=== PATIENT | male | born 1955 | race Caucasian/White ===

== ENCOUNTER → 2016-12-10 | Outpatient (CLI) | payer OTHER | LOC: CIMAGING 10:04 | PROVIDERS: ATTEND Internal Medicine | DX: M50.322 Other cervical disc degeneration at C5-C6 level (principal); M50.323 Other cervical disc degeneration at C6-C7 level; M46.92 Unspecified inflammatory spondylopathy, cervical region; I65.22 Occlusion and stenosis of left carotid artery | CPT/HCPCS: 72050-PO ==

== ENCOUNTER → 2016-12-18 | Outpatient (CLI) | payer OTHER | LOC: CIMAGING 10:58 | PROVIDERS: ATTEND Internal Medicine | DX: Z13.6 Encounter for screening for cardiovascular disorders (principal); I10 Essential (primary) hypertension; Z79.82 Long term (current) use of aspirin; Z87.891 Personal history of nicotine dependence | CPT/HCPCS: 75571-PO ==

== ENCOUNTER → 2016-12-18 | Outpatient (CLI) | payer OTHER | LOC: CIMAGING 10:49 | PROVIDERS: ATTEND Internal Medicine | DX: E04.1 Nontoxic single thyroid nodule (principal); I10 Essential (primary) hypertension ==

== ENCOUNTER 2017-01-27 10:09 | Emergency (ER) | payer OTHER ==
[2017-01-27 10:22] VITALS: RESP 18
--- NOTE | 2017-01-27 10:35 | CPEKG ---
Heart Rate: 50 RR Interval: 1200 P-R Interval: 132 QRSD Interval: 86 QT Interval: 432 QTC Interval: 394 P [place]: 19 QRS [place]: 43 T Wave [place]: 23 EKG Severity - NORMAL ECG - EKG Impression: SINUS RHYTHM Electronically Signed By: Hunter Seay 27-Jan-2017 12:50:20
[2017-01-27 11:03] LABS: % IMMATURE GRANULYOCYTES 0.4 % (0.0-1.1); ABSOLUTE IMMATURE GRANULOCYTES 0.03 10^3/uL (0.00-0.10); ADD DIFF? NO; ADD MORPH? NO; ADD SCAN? NO; ATYPICAL LYMPHOCYTE FLAG 10 (0-99); FRAGMENT RBC FLAG 0 (0-99); HEMOGLOBIN 14.8 g/dL (13.7-17.5); LEFT SHIFT FLG 0 (0-99); LIPEMIA HEMOLYSIS FLAG 90 (0-99); MEAN CELL HEMOGLOBIN 30.5 pg (27.9-34.1); MEAN CELL HEMOGLOBIN CONCENTR. 34.4 g/dL (32.4-36.7); MEAN CELL VOLUME 88.7 fL (81.5-99.8); MEAN PLATELET VOLUME 9.2 fL (8.7-11.7); PLATELET CLUMPS FLAG 30 (0-99); PLATELET COUNT 229 10^3/uL (150-400); RED BLOOD CELL COUNT 4.85 10^6/uL (4.40-6.38); RED CELL DISTRIBUTION WIDTH 12.4 % (11.5-15.2)
[2017-01-27] MEDS ORDERED: NS 1,000 ML IV ONE (11:06)
[2017-01-27 11:20] LABS: ANION GAP 8 mEq/L (8-16); CALCIUM 9.2 mg/dL (8.5-10.4); CARBON DIOXIDE 30 mEq/l (22-31); CHLORIDE 95 mEq/L (97-110); CREATININE 0.8 mg/dL (0.7-1.3); GLOMERULAR FILTRATION RATE > 60; GLUCOSE 108 mg/dL (70-100); POTASSIUM 4.3 mEq/L (3.5-5.2); SODIUM 133 mEq/L (134-144)
--- NOTE | 2017-01-27 11:36 | EDPHY ---
H & P Stated Complaint: syncope/sweating ppost phone call from dr charles thyrooid cancer Time Seen by Provider: 01/27/17 11:33 HPI/ROS: HPI: 61-year-old male presents to emergency department with chief concern fainted. Was sitting at his desk at work today at [employer] and felt suddenly strange, Shikha, lightheaded. Next thing he remembered he awoke on the floor drenched in sweat. 15 minutes prior he had received news that his thyroid cancer was in his lymph nodes. He denies fever, chills, myalgias, visual changes, URI symptoms, shortness of breath, chest pain, abdominal pain, nausea, vomiting, diarrhea, rash. Is unsure if he struck his head. He has no headache, visual changes, neck or back pain that is new for him. No incontinence. Has a history that includes dizzy spells, passed out 20 years ago , hypertension, GERD, elevated cholesterol. Had normal stress test, nuclear stress test, and echo this winter. Past medical history includes hypertension, GERD, elevated cholesterol. He takes atenolol. His normal resting heart rate is in the 50s. 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 Denies alcohol or illicit drugs. ROS:10 point review of systems is negative other than as stated in HPI Source: Patient Exam Limitations: No limitations - Personal History Current Tetanus/Diphtheria Vaccine: Yes - Medical/Surgical History Hx Asthma: No Hx Chronic Respiratory Disease: No Hx Diabetes: No Hx Cardiac Disease: No Hx Renal Disease: No Hx Cirrhosis: No Hx Alcoholism: No Hx HIV/AIDS: No Hx Splenectomy or Spleen Trauma: No Other PMH: PMH: HTN, GERD, High Cholesterol. 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 No acute distress. Head: Atraumatic, normalocephalic EENT: PERRLA. EOMI. No papilledema. no conjunctival injection or hemorrhage. TMs intact, translucent. No evidence of bleeding or otorrhea. Nasal septum midline, nasal mucosa pink. no evidence of drainage. Uvula midline, pharynx without redness. Neck: No midline tenderness, full range of motion, supple. No carotid bruit. Resp: Breathing unlabored. Lungs clear to auscultation bilaterally. No adventitious sounds. CV: HRR. S1S2. No MRG. GI: Abdomen soft, nontender. Bowel sounds normoactive and positive x4 quadrants. : No CVA tenderness. Skin: Warm, dry. No rashes noted. Capillary refill less than 2 seconds. Musculoskeletal: Strength equal and 5+ in all 4 extremities. Neuro: No focal neuro deficit. Face is symmetric. CN II through XII intact. Rapid alternating hand movements intact. Finger to nose intact. Heel to anthony intact. Negative Romberg. Negative pronator drift. Gait even and steady. Memory and recall of 3/3 objects at 5 minutes intact. Upper and lower extremity DTRs 2+. Extremities: Full range of motion. Constitutional: Initial Vital Signs Temperature (C) 36.3 C 01/27/17 10:20 Heart Rate 55 L 01/27/17 10:20 Respiratory Rate 18 01/27/17 10:20 Blood Pressure 125/70 H 01/27/17 10:20 O2 Sat (%) 99 01/27/17 10:20 O2 Delivery Mode Room Air Allergies/Adverse Reactions: codeine Allergy (Verified 01/27/17 10:19) Penicillins Allergy (Verified 01/27/17 10:19) shellfish derived Allergy (Verified 01/27/17 10:19) Tetracyclines Allergy (Verified 01/27/17 10:19) Home Medications: Medication Instructions Recorded Atenolol 07/19/16 Fish Oil 07/19/16 HCTZ (*) 07/19/16 Lipitor 07/19/16 Potassium 07/19/16 Prilosec 20 mg 07/19/16 Claritin 07/21/16 Medical Decision Making ED Course/Re-evaluation: 61-year-old male presents to emergency department with chief concern fainted. Received a phone call that his thyroid cancer was in his lymph nodes this morning, and thus a thyroidectomy scheduled for Friday will need to be postponed and a bigger surgery rescheduled. He was very stressed about this. Within 15 minutes he was sitting in his chair on campus and had apparently fainted. Awoke on the floor. Is unclear if he hit his head. He has no headache, no dizziness, no neck or back pain. CBC unremarkable. Metabolic panel shows sodium 133, chloride 95, glucose 108. Troponins negative. EKG shows a sinus Rayo, rate 50. No evidence of ischemia. Patient is on atenolol and his resting heart rate is typically in 50s. He had no other symptoms this morning prior to this event. Orthostatics are negative. At time of evaluation, patient is symptom free. He is up ambulating in the emergency department without any difficulty. I have counseled this patient regarding need for prompt follow-up with primary care. He verbalizes understanding and agrees to do so. Differential Diagnosis: Differential diagnosis includes but is not limited to vasovagal response, dehydration, metabolic derangement, anemia/blood loss, cardiac dysrhythmia or bradycardia, MO, stroke - Data Points Laboratory Results: Laboratory Results 01/27/17 10:38 01/27/17 10:38 01/27/17 01/27/17 01/27/17 Unknown 10:38 10:38 WBC 6.74 10^3/uL 10^3/uL (3.80-9.50) RBC 4.85 10^6/uL 10^6/uL (4.40-6.38) Hgb 14.8 g/dL g/dL (13.7-17.5) Hct 43.0 % % (40.0-51.0) MCV 88.7 fL fL (81.5-99.8) MCH 30.5 pg pg (27.9-34.1) MCHC 34.4 g/dL g/dL (32.4-36.7) RDW 12.4 % % (11.5-15.2) Plt Count 229 10^3/uL 10^3/uL (150-400) MPV 9.2 fL fL (8.7-11.7) Neut % (Auto) 72.3 % % (39.3-74.2) Lymph % (Auto) 17.5 % % (15.0-45.0) [place] % (Auto) 8.2 % % (4.5-13.0) Eos % (Auto) 1.2 % % (0.6-7.6) Baso % (Auto) 0.4 % % (0.3-1.7) Nucleat RBC Rel Count 0.0 % % (0.0-0.2) Absolute Neuts (auto) 4.87 10^3/uL 10^3/uL (1.70-6.50) Absolute Lymphs (auto) 1.18 10^3/uL 10^3/uL (1.00-3.00) Absolute Monos (auto) 0.55 10^3/uL 10^3/uL (0.30-0.80) Absolute Eos (auto) 0.08 10^3/uL 10^3/uL (0.03-0.40) Absolute Basos (auto) 0.03 10^3/uL 10^3/uL (0.02-0.10) Absolute Nucleated RBC 0.00 10^3/uL 10^3/uL (0-0.01) Immature Gran % 0.4 % % (0.0-1.1) Immature Gran # 0.03 10^3/uL 10^3/uL (0.00-0.10) Sodium 133 mEq/L L mEq/L (134-144) Potassium 4.3 mEq/L mEq/L (3.5-5.2) Chloride 95 mEq/L L mEq/L (97-110) Carbon Dioxide 30 mEq/l mEq/l (22-31) Anion Gap 8 mEq/L mEq/L (8-16) BUN 12 mg/dL mg/dL (7-23) Creatinine 0.8 mg/dL mg/dL (0.7-1.3) Estimated GFR > 60 Glucose 108 mg/dL H mg/dL (70-100) Calcium 9.2 mg/dL mg/dL (8.5-10.4) Troponin I < 0.012 ng/mL ng/mL (0-0.034) Medications Given: Discontinued Medications Sodium Chloride (Ns) 1,000 mls @ 0 mls/hr IV ONCE ONE PRN Reason: Wide Open Stop: 01/27/17 11:07 Last Admin: 01/27/17 11:24 Dose: 1,000 mls Departure - Departure Disposition: Home, Routine, Self-Care Clinical Impression: Fainted, Vasovagal episode Condition: Good Instructions: Syncope (ED) Additional Instructions: Plan: Your EKG and labs are within normal Orthostatic vital signs are all normal Please make a follow-up appointment with your primary care provider Dr. Lakhwinder Mccarthy for recheck tomorrow without fail--When you call to schedule appointment, please let the office know you are an "ER follow up" appointment" Should your symptoms return or worsen, or if he developed shortness of breath or chest pain, please return promptly for recheck Referrals: Lakhwinder Mccarthy MD [Primary Care Provider] - As per Instructions
[2017-01-27 12:47] VITALS: BP 112/70; PULSE 51; TEMP 98.4; O2SAT 96
== END 2017-01-27 12:48 | disposition home or self-care (01) ==
DX: R55 Syncope and collapse (principal); I10 Essential (primary) hypertension

== ENCOUNTER → 2017-03-12 | Outpatient (CLI) | payer OTHER | LOC: FIMAGING 12:33 | PROVIDERS: ATTEND Internal Medicine Endocrinology, Diabetes & Metabolism | DX: Z85.850 Personal history of malignant neoplasm of thyroid (principal); Z90.09 Acquired absence of other part of head and neck | CPT/HCPCS: 78018; 79005; A9517 ==

== ENCOUNTER → 2017-04-16 | Outpatient (CLI) | payer OTHER | LOC: CIMAGING 14:05 | PROVIDERS: ATTEND Family Medicine | DX: R91.1 Solitary pulmonary nodule (principal) | CPT/HCPCS: 71250-PO ==

== ENCOUNTER → 2017-10-30 | Outpatient (CLI) | payer OTHER | LOC: CIMAGING 09:19 | PROVIDERS: ATTEND Family Medicine | DX: R91.8 Other nonspecific abnormal finding of lung field (principal); J40 Bronchitis, not specified as acute or chronic; I25.10 Atherosclerotic heart disease of native coronary artery without angina pectoris; K76.89 Other specified diseases of liver; Z87.891 Personal history of nicotine dependence; Z85.850 Personal history of malignant neoplasm of thyroid | CPT/HCPCS: 71250-PO ==

== ENCOUNTER → 2018-01-30 | Outpatient (CLI) | payer OTHER ==
[~2018-01-30] MED LIST: IOPAMIDOL (ISOVUE-370) 150 ML BTL IV ONE
== END ==
LOC: CIMAGING 13:25
PROVIDERS: ATTEND Internal Medicine Cardiovascular Disease
DX: I10 Essential (primary) hypertension (principal)
CPT/HCPCS: Q9967

== ENCOUNTER 2018-11-15 16:27 | Emergency (ER) | payer OTHER ==
--- NOTE | 2018-11-15 16:48 | EDPHY ---
H & P Stated Complaint: Left flank pain, lumbar spine pain following fall Time Seen by Provider: 11/15/18 16:44 HPI/ROS: CHIEF COMPLAINT: Left flank pain, lumbar spine pain following fall HISTORY OF PRESENT ILLNESS: The patient presents the emergency department with left flank pain and with lumbar spine pain following a fall that occurred yesterday. The patient fell off a ladder onto a 4 x 4 post. The patient reported he initially had mild pain. He was ambulatory. He went on his with his day with minimal discomfort yesterday. Today the patient developed acute left flank pain which is paroxysmal and coming in waves. He denies any acute numbness or weakness. The pain is worsened with palpation. The patient denies any hematuria. He is not anticoagulated. He denies additional acute complaints. REVIEW OF SYSTEMS: A comprehensive 10 point review of systems is otherwise negative aside from elements mentioned in the history of present illness. Source: Patient - Personal History Current Tetanus/Diphtheria Vaccine: Yes Current Tetanus Diphtheria and Acellular Pertussis (TDAP): Yes - Medical/Surgical History Hx Asthma: No Hx Chronic Respiratory Disease: No Hx Diabetes: No Hx Cardiac Disease: Yes Hx Renal Disease: No Hx Cirrhosis: No Hx Alcoholism: No Hx HIV/AIDS: No Hx Splenectomy or Spleen Trauma: No Other PMH: PMH: HTN, GERD, High Cholesterol. PSHx: hernia repair - Social History Smoking Status: Never smoked - Physical Exam Exam: General Appearance: Alert, no distress Head: Atraumatic Eyes: Pupils equal, round, reactive ENT, Mouth: No hemotympanum, no oral trauma Neck: Nontender, trachea midline Respiratory: No chest wall tender, no subcutaneous air, lungs clear bilaterally Cardiovascular: Regular rate and rhythm Abdomen: Abdomen is soft and nontender, pelvis stable Back: Left CVA tenderness Skin: No lacerations, No abrasion Back: Tenderness to palpation left lower lumbar spine and paraspinal region Extremities: Nontender, full range of motion Neurological: A&Ox3, normal motor function, normal sensory exam Constitutional: Initial Vital Signs Temperature (C) 36.3 C 11/15/18 16:32 Blood Pressure 140/71 H 11/15/18 16:32 Allergies/Adverse Reactions: codeine Allergy (Verified 11/15/18 16:31) Penicillins Allergy (Verified 11/15/18 16:31) shellfish derived Allergy (Verified 11/15/18 16:31) Tetracyclines Allergy (Verified 11/15/18 16:31) Home Medications: Medication Instructions Recorded Atenolol 07/19/16 Fish Oil 07/19/16 HCTZ (*) 07/19/16 Lipitor 07/19/16 Prilosec 20 mg 07/19/16 Aspirin 11/15/18 Levothyroxine 11/15/18 Medical Decision Making ED Course/Re-evaluation: The patient presents the ED for evaluation of left flank pain following a fall from a ladder yesterday. The patient has no acute neurologic complaints arrives to the ED with a GCS of 15. The patient's neurologic examination is noted to be normal. The patient had marked tenderness to palpation and left CVA tenderness noted on exam. Given the patient's mechanism injury a CT scan of the abdomen pelvis was ordered secondary to concerns about the possibility of a retroperitoneal hematoma. The patient had an IV established. I verified a normal creatinine. Fortunately, the results of the CT scan demonstrate only a small nondisplaced transverse process fracture involving L1. The patient has been informed of the nonsurgical nature of this fracture. Discharged home with customary aftercare instructions and return precautions. Differential Diagnosis: Differential diagnosis considered includes retroperitoneal hemorrhage, lumbar fracture, spinal cord injury, myofascial strain - Data Points Laboratory Results: 11/15/18 17:16 POC Hgb 13.9 gm/dL gm/dL (13.7-17.5) POC Hct 41 % % (40-51) POC Sodium 131 mEq/L L mEq/L (135-145) POC Potassium 3.6 mEq/L mEq/L (3.3-5.0) POC Chloride 89 mEq/L L mEq/L (97-110) POC Total CO2 26 mEq/L mEq/L (22-31) POC BUN 11 mg/dL mg/dL (7-23) POC Creatinine 0.9 mg/dL mg/dL (0.7-1.3) POC Glucose 131 mg/dL H mg/dL (70-100) Point of Care Test Results: Chemistry 11/15/18 17:16 POC Sodium 131 mEq/L L mEq/L (135-145) POC Potassium 3.6 mEq/L mEq/L (3.3-5.0) POC Chloride 89 mEq/L L mEq/L (97-110) POC Total CO2 26 mEq/L mEq/L (22-31) POC BUN 11 mg/dL mg/dL (7-23) POC Creatinine 0.9 mg/dL mg/dL (0.7-1.3) POC Glucose 131 mg/dL H mg/dL (70-100) ISTAT H&H 11/15/18 17:16 POC Hgb 13.9 gm/dL gm/dL (13.7-17.5) POC Hct 41 % % (40-51) Departure - Departure Disposition: Home, Routine, Self-Care Clinical Impression: Lumbar transverse process fracture Qualifiers: Encounter type: initial encounter Fracture type: closed Qualified Code(s): S32.009A - Unspecified fracture of unspecified lumbar vertebra, initial encounter for closed fracture Condition: Good Instructions: Musculoskeletal Pain (ED) Additional Instructions: 1. You have a small hairline fracture involving the tip of a lumbar spinous process. This is a nonsurgical fracture which will heal without complication. 2. Take Ibuprofen or Motrin 600 mg by mouth three times a day. 3. Return to the ED for markedly worsening symptoms of pain or other concerns. 4. [place] as needed for severe pain 5. There is no evidence of a kidney injury or other traumatic finding Referrals: PHILLIP EDMONDSON [Primary Care Provider] - As per Instructions
[2018-11-15] MEDS ORDERED: IOHEXOL 300 mgI/ML (OMNIPAQUE) 150 ML BTL IV ONE (17:22)
[2018-11-15] MEDS ORDERED: HYDROCOD/APAP 5/325 PREPACK#6 BTL TAKEHOME ONE (18:46)
[2018-11-15 18:48] VITALS: BP 124/80
== END 2018-11-15 19:02 | disposition home or self-care (01) ==
DX: S32.018A Other fracture of first lumbar vertebra, initial encounter for closed fracture (principal); I10 Essential (primary) hypertension; E78.00 Pure hypercholesterolemia, unspecified; W11.XXXA Fall on and from ladder, initial encounter
CPT/HCPCS: 82435-PO; 82565-PO; 82947-PO; 84132-PO; 84295-PO; 84520-PO; 85014-ER; Q9967

== ENCOUNTER 2019-01-05 13:01 | Emergency (ER) | payer OTHER ==
[2019-01-05] MEDS ORDERED: NS 1,000 ML IV ONE ×2 (14:15)
[2019-01-05] MEDS ORDERED: ONDANSETRON 4 MG/2 ML VIAL IVP ONE (14:15)
--- NOTE | 2019-01-05 14:19 | EDPHY ---
H & P Stated Complaint: Dizzy and Headache starting yesterday evening, colonoscopy prep yesterday Time Seen by Provider: 01/05/19 14:11 HPI/ROS: CHIEF COMPLAINT: Vertigo, posterior headache, nausea HISTORY OF PRESENT ILLNESS: The patient is a 63-year-old man who was in his normal state of health until yesterday when he began taking GoLYTELY in preparation for colonoscopy today. He took 1 out of the 2 quarts of GoLYTELY and then had to stop because he felt nauseous and dizzy. He also complains of very slight posterior headache at the base of his skull. He did not have his procedure done today. He denies chest pain or shortness of breath. He denies abdominal pain. He did have diarrhea while he was taking GoLYTELY but it has since resolved. No fevers. No recent infections. He was seen here 2 months ago after he fell off a ladder and had a T1 transverse process fracture was managed conservatively. He states that that was feeling better until about the last few days and began to bother him more. No focal weakness or deficits. No numbness. He is able to ambulate but states that he feels like he is going to fall. His symptoms are worsened by position changes. He does not feel like he is going to faint or blackout. Severity: Mild Modifying factors: Position changes REVIEW OF SYSTEMS: Constitutional: denies: chills, fever, recent illness, recent injury EENTM: denies: blurred vision, double vision, nose congestion Respiratory: denies: cough, shortness of breath Cardiac: denies: chest pain, irregular heart rate, lightheadedness, palpitations Gastrointestinal/Abdominal: denies: abdominal pain, diarrhea, nausea, vomiting, blood streaked stools Genitourinary: denies: dysuria, frequency, hematuria, pain Musculoskeletal: denies: joint pain, muscle pain Skin: denies: lesions, rash, jaundice, bruising Neurological: See HPI denies: numbness, paresthesia, tingling, dizziness, weakness Hematologic/Lymphatic: denies: blood clots, easy bleeding, easy bruising Immunologic/allergic: denies: HIV/AIDS, transplant 10 systems reviewed and negative except as noted EXAM: GENERAL: Well-appearing, well-nourished and in no acute distress. HEAD: Atraumatic, normocephalic. EYES: Pupils equal round and reactive to light, extraocular movements intact, sclera anicteric, conjunctiva are normal. ENT: TMs normal, nares patent, oropharynx clear without exudates. Moist mucous membranes. NECK: Normal range of motion, supple without lymphadenopathy or JVD. LUNGS: Breath sounds clear to auscultation bilaterally and equal. No wheezes rales or rhonchi. HEART: Regular rate and rhythm without murmurs, rubs or gallops. ABDOMEN: Soft, nontender, normoactive bowel sounds. No guarding, no rebound. No masses appreciated. BACK: No CVA tenderness, no spinal tenderness, step-offs or deformities EXTREMITIES: Normal range of motion, no pitting or edema. No clubbing or cyanosis. NEUROLOGICAL: Cranial nerves II through XII grossly intact. Normal speech, normal gait. 5/5 strength, normal movement in all extremities, normal sensation , normal reflexes, normal cerebellar exam. PSYCH: Normal mood, normal affect. SKIN: Warm, dry, normal turgor, no visible rashes or lesions. Source: Patient Exam Limitations: No limitations - Personal History Current Tetanus Diphtheria and Acellular Pertussis (TDAP): Yes - Medical/Surgical History Hx Asthma: No Hx Chronic Respiratory Disease: No Hx Diabetes: No Hx Cardiac Disease: Yes Hx Renal Disease: No Hx Cirrhosis: No Hx Alcoholism: No Hx HIV/AIDS: No Hx Splenectomy or Spleen Trauma: No Other PMH: PMH: HTN, GERD, High Cholesterol, thyroid cancer, thyroid removal, T1 transvers process fx. PSHx: hernia repair - Family History Significant Family History: No pertinent family hx - Social History Smoking Status: Never smoked Alcohol Use: None Constitutional: Initial Vital Signs Temperature (C) 36.8 C 01/05/19 13:04 Heart Rate 62 01/05/19 13:04 Respiratory Rate 18 01/05/19 13:04 Blood Pressure 142/80 H 01/05/19 13:04 O2 Sat (%) 98 01/05/19 13:04 O2 Delivery Mode Room Air Allergies/Adverse Reactions: codeine Allergy (Verified 01/05/19 13:08) Penicillins Allergy (Verified 01/05/19 13:08) shellfish derived Allergy (Verified 01/05/19 13:08) Tetracyclines Allergy (Verified 01/05/19 13:08) Home Medications: Medication Instructions Recorded Atenolol 07/19/16 Fish Oil 07/19/16 HCTZ (*) 07/19/16 Lipitor 07/19/16 Prilosec 20 mg 07/19/16 Aspirin 11/15/18 Levothyroxine 11/15/18 Medical Decision Making - Diagnostics EKG Interpretation: An EKG obtained and was read and documented in trace view. Please see trace view for full reading and report. Sinus rhythm, no acute ischemic changes, similar to previous Imaging Results: Imaging Impressions Brain MRI 01/05/19 17:09 Impression: Normal MRI of the brain without contrast. Results called and discussed with Roxy Weiss M.D., on 01/05/2019 at 18:53. Head MRA 01/05/19 17:09 Impression: Negative MRA of [place] and posterior circulation, with no evidence for vascular obstruction or dissection. Results called and discussed with Roxy Weiss M.D., on January 05, 2019 at 1856. Neck MRA 01/05/19 17:09 Impression: MRA of the cervical carotids and vertebrals demonstrates no evidence of flow-limiting stenosis, occlusion, or dissection. Specifically, the vertebral arteries appear normal bilaterally. Measurements of carotid stenosis is based on the residual internal carotid diameter with [place] Symptomatic Carotid Endarterectomy Trial (NASCET) based stenosis levels. Results called and discussed with ROXY WEISS M.D. on 01/05/2019 at 18:59. Imaging: Discussed imaging studies w/ call center supervisor Radiologist ED Course/Re-evaluation: 3:30 p.m. the patient has received 2 L of normal saline. He states that he is feeling much better. I suspect that his symptoms were from mild hyponatremia. This is been treated rather rapidly however his symptom onset was also rather rapid dinner for this should be safe. Will road test and recheck sodium and if the patient continues to feel asymptomatic will discharge. 5:00 p.m. the patient's sodium is now 132. He tells me that he still feels slightly dizzy. I had him stand up and walk. This made him feel worse. He has difficulty balancing on 1 leg at a time. Will order an MRI to rule out posterior circulation abnormality. 7:00 p.m. the patient's MRI is reassuring. He is relieved. He is feeling much better. He is eager to go home. Discussed indications for returning. We discussed free water restriction. Differential Diagnosis: Partial list of the Differential diagnosis considered include but were not limited to; hyponatremia, BPH, and although unlikely based on the history and physical exam, I also considered CVA, dissection. I discussed these differential diagnoses and the plan with the patient as well as the usual and expected course. The patient understands that the diagnosis is provisional and that in medicine we are not always correct and that further workup is often warranted. Usual and customary warnings were given. All of the patient's questions were answered. The patient was instructed to return to the emergency department should the symptoms at all worsen or return, otherwise to followup with the physician as we discussed. - Data Points Laboratory Results: Laboratory Results 01/05/19 14:36 01/05/19 16:12 01/05/19 01/05/19 01/05/19 16:12 14:36 14:36 WBC 7.80 10^3/uL 10^3/uL (3.80-9.50) RBC 4.58 10^6/uL 10^6/uL (4.40-6.38) Hgb 14.4 g/dL g/dL (13.7-17.5) Hct 40.3 % % (40.0-51.0) MCV 88.0 fL fL (81.5-99.8) MCH 31.4 pg pg (27.9-34.1) MCHC 35.7 g/dL g/dL (32.4-36.7) RDW 12.2 % % (11.5-15.2) Plt Count 289 10^3/uL 10^3/uL (150-400) MPV 8.8 fL fL (8.7-11.7) Neut % (Auto) 77.4 % H % (39.3-74.2) Lymph % (Auto) 11.4 % L % (15.0-45.0) [place] % (Auto) 9.0 % % (4.5-13.0) Eos % (Auto) 1.4 % % (0.6-7.6) Baso % (Auto) 0.5 % % (0.3-1.7) Nucleat RBC Rel Count 0.0 % % (0.0-0.2) Absolute Neuts (auto) 6.04 10^3/uL 10^3/uL (1.70-6.50) Absolute Lymphs (auto) 0.89 10^3/uL L 10^3/uL (1.00-3.00) Absolute Monos (auto) 0.70 10^3/uL 10^3/uL (0.30-0.80) Absolute Eos (auto) 0.11 10^3/uL 10^3/uL (0.03-0.40) Absolute Basos (auto) 0.04 10^3/uL 10^3/uL (0.02-0.10) Absolute Nucleated RBC 0.00 10^3/uL 10^3/uL (0-0.01) Immature Gran % 0.3 % % (0.0-1.1) Immature Gran # 0.02 10^3/uL 10^3/uL (0.00-0.10) Sodium 132 mEq/L L mEq/L 129 mEq/L L mEq/L (135-145) (135-145) Potassium 3.8 mEq/L mEq/L 3.6 mEq/L mEq/L (3.5-5.2) (3.5-5.2) Chloride 97 mEq/L mEq/L 93 mEq/L L mEq/L (97-110) (97-110) Carbon Dioxide 26 mEq/l mEq/l 30 mEq/l mEq/l (22-31) (22-31) Anion Gap 9 mEq/L mEq/L 6 mEq/L mEq/L (6-14) (6-14) BUN 8 mg/dL mg/dL 9 mg/dL mg/dL (7-23) (7-23) Creatinine 0.7 mg/dL mg/dL 0.7 mg/dL mg/dL (0.7-1.3) (0.7-1.3) Estimated GFR > 60 > 60 Glucose 98 mg/dL mg/dL 106 mg/dL H mg/dL (70-100) (70-100) Calcium 7.7 mg/dL L mg/dL 8.6 mg/dL mg/dL (8.5-10.4) (8.5-10.4) Total Bilirubin 0.8 mg/dL mg/dL (0.1-1.4) Conjugated Bilirubin 0.2 mg/dL mg/dL (0.0-0.5) Unconjugated Bilirubin 0.6 mg/dL mg/dL (0.0-1.1) AST 23 IU/L IU/L (17-59) ALT 32 IU/L IU/L (21-72) Alkaline Phosphatase 52 IU/L IU/L (38-126) Total Protein 5.9 g/dL L g/dL (6.3-8.2) Albumin 3.8 g/dL g/dL (3.5-5.0) TSH 0.218 uIU/mL L uIU/mL (0.465-4.680) Free T4 1.10 ng/dL ng/dL (0.59-2.19) Medications Given: Discontinued Medications Sodium Chloride (Ns) 1,000 mls @ 0 mls/hr IV EDNOW ONE; Wide Open PRN Reason: Protocol Stop: 01/05/19 14:16 Last Admin: 01/05/19 14:35 Dose: 1,000 mls Sodium Chloride (Ns) 1,000 mls @ 0 mls/hr IV EDNOW ONE; Wide Open PRN Reason: Protocol Stop: 01/05/19 14:16 Last Admin: 01/05/19 14:35 Dose: 1,000 mls Metoclopramide HCl (Reglan Injection) 10 mg IVP EDNOW ONE Stop: 01/05/19 17:10 Last Admin: 01/05/19 17:19 Dose: 10 mg Ondansetron HCl (Zofran) 4 mg IVP EDNOW ONE Stop: 01/05/19 14:16 Last Admin: 01/05/19 14:35 Dose: 4 mg Departure - Departure Disposition: Home, Routine, Self-Care Clinical Impression: Hyponatremia Condition: Fair Instructions: Hyponatremia (ED) Referrals: PHILLIP EDMONDSON [Primary Care Provider] - As per Instructions
--- NOTE | 2019-01-05 14:41 | CPEKG ---
Test Reason : OPEN Blood Pressure : / mmHG Vent. Rate : 054 BPM Atrial Rate : 054 BPM P-R Int : 133 ms QRS Dur : 088 ms QT Int : 421 ms P-R-T Axes : 011 056 031 degrees QTc Int : 399 ms Sinus rhythm Minimal ST elevation, anterior leads Confirmed by Saeed Soliz ([id number]) on 01/05/2019 2:41:02 PM Referred By: Saeed Soliz Confirmed By:Saeed Soliz
[2019-01-05 14:47] LABS: PLATELET COUNT 289 10^3/uL (150-400)
[2019-01-05] MEDS ORDERED: METOCLOPRAMIDE 10 MG/2 ML VIAL IVP ONE (17:09)
[2019-01-05] MEDS ORDERED: GADOBUTROL 10 ML VIAL IVP ONE (17:37)
[2019-01-05 19:31] VITALS: BP 118/75
== END 2019-01-05 19:29 | disposition home or self-care (01) ==
DX: E87.1 Hypo-osmolality and hyponatremia (principal); I10 Essential (primary) hypertension; E86.9 Volume depletion, unspecified
CPT/HCPCS: 70551-PN; 96374; A9585; J2405; J2765